=== PATIENT | female | born 1970 | race Hispanic/Latino ===

== ENCOUNTER 2022-02-26 22:31 | Observation (INO) | payer OTHER ==
[~2022-02-26] VITALS: Ht 160 cm; Wt 81.6 kg
[2022-02-26 23:07] LABS: BASOPHILS % (AUTO) 0.5 % (0.0-5.0); EOSINOPHILS % (AUTO) 0.5 % (0.0-8.0); HEMATOCRIT 26.2 % (36-48); LYMPHOCYTES % (AUTO) 20.8 % (21.0-51.0); MEAN CORPUSCULAR HEMOGLOBIN 28.7 pg (27.0-33.0); MEAN CORPUSCULAR HGB CONC 33.6 g/dL (32.0-36.0); MEAN CORPUSCULAR VOLUME 85.3 fL (79-99); NEUTROPHILS % (AUTO) 72.2 % (40.0-77.0); PLATELET COUNT (AUTO) 247 K/uL (130-400); RED BLOOD CELL COUNT(AUTO) 3.07 MIL/uL (4.00-5.50); RED CELL DISTRIBUTION WIDTH 13.3 % (11.0-15.5); WHITE BLOOD COUNT (AUTO) 12.9 K/uL (4.8-10.8)
[2022-02-26 23:27] LABS: APPEARANCE,URINE CLEAR (CLEAR); BACTERIA,URINE RARE /HPF (None Seen); BILIRUBIN,URINE NEGATIVE (NEGATIVE); COLOR,URINE YELLOW (YELLOW); GLUCOSE, URINE (UA) >=1000 mg/dL (NEGATIVE); KETONES,URINE 10 mg/dL (NEGATIVE); LEUKOCYTE ESTERASE ,URINE NEGATIVE Leu/uL (NEGATIVE); MUCUS,URINE RARE LPF (None Seen); NITRATE,URINE NEGATIVE (NEGATIVE); OCCULT BLOOD,URINE LARGE (NEGATIVE); PROTEIN,URINE 10 mg/dL (NEGATIVE); RBC,URINE TNTC /HPF (0-1); SQUAMOUS EPITHELIAL CELL,UR RARE /HPF (0-2); UROBILINOGEN,URINE 0.2 mg/dL (0.2-1.0); WBC,URINE 0-1 /HPF (0-1)
[2022-02-26 23:30] LABS: CREATININE 0.9 mg/dL (0.5-1.5); POTASSIUM 3.7 mmol/L (3.5-5.1)
[2022-02-26 23:35] LABS: ALBUMIN 3.7 g/dL (3.5-5.0); TOTAL PROTEIN, SERUM 7.5 g/dL (6.0-8.3)
[2022-02-27 02:10] VITALS: BP 128/68
[2022-02-27] MEDS ORDERED: ACETAMINOPHEN WITH CODEINE 1 TAB TAB PO PRN (03:00)
[2022-02-27] MEDS ORDERED: ONDANSETRON 4MG INJ IVP PRN (03:00)
[2022-02-27] MEDS ORDERED: 0.9%NACL 1000ML 1,000 ML IV SCH (03:30)
[2022-02-27] MEDS ORDERED: TRANEXAMIC ACID 1000MG/10ML IV ONE (03:30)
[2022-02-27] MEDS ORDERED: LISI10TA24 PO (05:50)
[2022-02-27] MEDS ORDERED: METF-444 PO (05:53)
[2022-02-27 06:42] VITALS: BP 122/72
[2022-02-27] MEDS ORDERED: ESTROGENS,CONJUGATED 25 MG/VIAL IV SCH (08:00)
[2022-02-27 12:00] VITALS: BP 113/63
[2022-02-27 16:12] VITALS: BP 95/63
[2022-02-27] MEDS ORDERED: FERS325 PO (17:34)
[2022-02-27] MEDS ORDERED: NORE1TAB28 PO (17:35)
[2022-02-27] MEDS ORDERED: NORE1TAB PO (17:35)
== END 2022-02-27 18:00 | disposition home or self-care (01) ==
LOC: EDH 22:31 → WSH 02-27 01:40
PROVIDERS: ADMIT Obstetrics & Gynecology; ATTEND Obstetrics & Gynecology
DX: N93.9 Abnormal uterine and vaginal bleeding, unspecified (principal); D64.9 Anemia, unspecified; I10 Essential (primary) hypertension; E11.9 Type 2 diabetes mellitus without complications; Z79.899 Other long term (current) drug therapy
CPT/HCPCS: 99284; 80053; 85025; 86850; 86900; 81001; 36415; 96374; 96361 ×2; 96375; 36430; 86901; 86923; G0378 ×15; P9016; J3490; J1410